=== PATIENT | male | born 1960 | race Caucasian/White ===

== ENCOUNTER → 2023-04-26 23:25 | Outpatient (CLI) | payer OTHER, SELFPAY ==
[2023-04-26 19:24] LABS: Basophils # 0.1 K/mm3 (0-0.2); Basophils % 1.1 % (0.1-2.0); Eosinophils # 0.2 K/mm3 (0.0-0.4); Eosinophils % 2.5 % (0.1-12.0); Hematocrit 46.5 % (42.0-52.0); Lymphocytes # 1.5 K/mm3 (0.7-4.5); Lymphocytes % 18.1 % (10-50); Mean Corpuscular HGB Conc 34.3 g/dL (31.8-35.4); Mean Corpuscular Hemoglobin 30.5 pg (27.0-31.2); Mean Corpuscular Volume 88.9 fl (80-94); Mean Platelet Volume 9.2 fl (7.4-10.4); Monocytes # 0.4 K/mm3 (0.1-1.0); Monocytes % 4.9 % (1.7-9.3); Neutrophils % 73.4 % (37.0-80.0); Platelet Count 324 K/mm3 (142-424); Red Blood Count 5.24 M/mm3 (4.60-6.20); Red Cell Distribution Width 13.6 % (11.5-17.5); White Blood Count 8.2 K/mm3 (4.8-10.8)
[2023-04-26 20:20] LABS: Alanine Aminotransferase 15 U/L (12-78); Albumin Level 4.8 g/dl (3.5-5.0); Albumin/Globulin Ratio 1.5 (1.1-1.8); Alkaline Phosphatase 116 U/L (38-126); Aspartate Amino Transferase 25 U/L (17-59); Bilirubin,Total 0.6 mg/dl (0.2-1.3); Blood Urea Nitrogen 15 mg/dl (9-20); Calcium 9.2 mg/dl (8.4-10.2); Carbon Dioxide 25 mmol/L (22.0-30.0); Chloride 101 mmol/L (98-107); Chol/HDL Ratio 6.9 (1-3.5); Cholesterol 213 mg/dl (140-200); Estimated Glomerular Filt Rate 86 ml/min (>60); GFR (African American) 103 ML/MIN (>60); Globulin 3.1 g/dL (1.3-3.2); Glucose 115 mg/dl (74-100); HDL Cholesterol 31 mg/dl (40-60); Sodium 136 mmol/L (136-145); Total Protein,Serum 7.9 g/dl (6.3-8.2); Triglycerides 283 mg/dl (30-150); VLDL Cholesterol 57 mg/dL (0-40)
[2023-04-26 20:32] LABS: Direct LDL Cholesterol 137.22 mg/dL (100-129)
[2023-04-26 20:37] LABS: 25-OH Vitamin D, Total 13.4 ng/mL (30-100)
[2023-04-26 20:52] LABS: Thyroid Stimulating Hormone 1.81 uIU/mL (0.465-4.68)
[2023-04-26 21:24] LABS: Amphetamine/Metha Screen,Urine Negative ng/ml (<1000)
[2023-04-26 21:25] LABS: Barbiturates Screen,Urine Negative ng/ml (<200)
[2023-04-26 21:26] LABS: Benzodiazepines Screen,Urine Negative ng/ml (<200); Cocaine Screen,Urine Negative ng/ml (<300)
[2023-04-26 21:27] LABS: Cannabinoid Screen,Urine Negative ng/ml (<50)
[2023-04-26 21:28] LABS: Methadone Screen,Urine Negative ng/ml (<300); Phencyclidine Screen,Urine Negative ng/ml (<25)
[2023-04-26 21:29] LABS: Opiate Screen,Urine Negative ng/ml (<300)
== END ==
PROVIDERS: Visit Provider Family Medicine
DX: Z79.899 Other long term (current) drug therapy (principal); E78.5 Hyperlipidemia, unspecified; I10 Essential (primary) hypertension; E55.9 Vitamin D deficiency, unspecified; Z68.28 Body mass index [BMI] 28.0-28.9, adult; Z87.891 Personal history of nicotine dependence
CPT/HCPCS: 80053; 80061; 80305; 82306; 84443; 85025; G0103

== ENCOUNTER 2023-05-09 11:15 | Outpatient (CLI) | payer OTHER, SELFPAY ==
--- NOTE | 2023-05-09 11:16 | US_ITS ---
FINAL REPORT CLINICAL HISTORY: bilateral leg pain , unhealing wound on left ANKLE, previous smoker, HTN, DM, HLD, hx [place], bilateral claudication. FINDINGS: COMPLETE ANKLE/BRACHIAL INDICES BILATERAL Ankle brachial indices were obtained. The right DAVE is 1.2. The left DAVE is 1.2. IMPRESSION: ABIs are within normal limits bilaterally. Reviewed, Interpreted and Dictated by Pranav Melton III, MD Transcribed by Chrissy Adhikari Authenticated and [facility]
== END 2023-05-09 23:59 ==
LOC: RT 11:16
PROVIDERS: Visit Provider Family Medicine
DX: M79.604 Pain in right leg (principal); M79.605 Pain in left leg; S91.002A Unspecified open wound, left ankle, initial encounter
CPT/HCPCS: 93923

== ENCOUNTER 2023-05-10 07:27 | Outpatient (CLI) | payer OTHER, SELFPAY ==
[2023-05-10 22:48] LABS: Amphetamine/Metha Screen,Urine Negative ng/ml (<1000)
[2023-05-10 22:49] LABS: Cannabinoid Screen,Urine Negative ng/ml (<50); Cocaine Screen,Urine Negative ng/ml (<300)
[2023-05-10 22:50] LABS: Opiate Screen,Urine Positive ng/ml (<300)
[2023-05-10 22:52] LABS: Phencyclidine Screen,Urine Negative ng/ml (<25)
[2023-05-10 23:15] LABS: Barbiturates Screen,Urine Negative ng/ml (<200); Benzodiazepines Screen,Urine Negative ng/ml (<200); Methadone Screen,Urine Negative ng/ml (<300)
== END 2023-05-10 23:59 ==
LOC: LAB.DROPOF 05-11 07:28
PROVIDERS: PCP Family Medicine; Visit Provider Family Medicine
DX: Z79.899 Other long term (current) drug therapy (principal)
CPT/HCPCS: 80307

== ENCOUNTER 2023-05-24 06:41 | Outpatient (CLI) | payer OTHER, SELFPAY ==
--- NOTE | 2023-05-24 | CA_ITS ---
APPROVED REPORT Exam: Pharmacologic Technologist: Jessica Johnson, Ht: 5 ft 11 in Wt: 208 lbs BSA: 2.14 m2 HR: 66 bpm BP: 145/73 mmHg Rhythm: NSR Medical History Medical History: HTN, Hyperlipidemia, Diabetes, Smoking Medications: Lisinopril,,,,, Aspirin,,,,, Metformin,,,,, Gabapentin,,,,, Atorvastatin,,,,, Vit D3,,,,, Bisprolol Fumarate,,,,, Omeprazole MAGNESUM,,,,, Allergies: MORPHINE, PENICILLIN Cardiac Risk Factors: HTN, Hyperlipidemia, Diabetes, FHX of CAD, Smoking Stress Test Details Test: LEXISCAN HR Resting HR: 69 bpm Max Heart Rate (APMHR): 158 bpm Max HR Achieved: 87 bpm Target HR (85% APMHR): 134 bpm % of APMHR: 55 Recovery HR: 79 bpm BP Resting BP: 145/73 mmHg Max BP: 156/81 mmHg Recovery BP: 148.0/77.0 mmHg ECG Resting ECG: Normal sinus rhythm, nonspecific T wave changes in inferior leads Stress ECG: No significant ST changes Arrhythmia: None Clinical Exercise duration: 04:01 min Highest Stage Achieved: Exercise capacity: 1.0 METs Stress ECG Conclusion PT HAD MILD SOA, AND HEAD DISCOMFORT NO SIGNIFICANT ST CHANGES Conclusion: UNREMARKABLE LEXISCAN STRESS MYOVIEW IMAGES REPORTED SEPARATELY Test Summary REST 04:15 . . 69 . 145/ 73 . . Stage 1 01:00 . . 79 . . . . Stage 2 01:00 . . 86 . . . . Stage 3 01:00 . . 84 . 156/ 81 . . Stage 4 01:00 . . 79 . 148/ 76 . . Stage 4 01:01 . . 79 . 148/ 76 . Stop exercise at 04:01 RECOVERY 01:00 . . 80 . . . . RECOVERY 02:00 . . 78 . . . . RECOVERY 03:00 . . 80 . 148/ 77 . . RECOVERY 03:51 . . 77 . 148/ 77 . . Electronically signed by : Martine Smith MD 05/25/2023 03:08:34
--- NOTE | 2023-05-24 06:42 | CA_ITS ---
APPROVED REPORT EXAM: Comprehensive 2D, Doppler, and color-flow Echocardiogram Employment Consultant: Mildred Rosales CRT Ht: 5 ft 11 in Wt: 208lbs BSA: 2.14 BP: 166/96 mmHg Indications: Chest Pain, Shortness of Breath, Diabetes, Fatigue, Hyperlipidemia, Hypertension/HDD 2D Dimensions Left Atrium 4.35 cm LVEF (Buchanan's) 54.20 % LVOT 2.08 cm (M/F) 1.5-2.5 LV Volume 135.40 mL LA Volume 66.60 mL LA Volume Index 31.10 mL/m2 (M/F) 16-34 EF AP4 53.70 % EF AP2 52.3 % EF BP 54.2 % GL Strain -18.8 % M-Mode Dimensions RVDd 3.40 cm (0.9-2.6) LVDd 4.83 cm (3.5-5.7) Ao Diam 4.41 cm (2.0-3.7) LVDs 3.29 cm (3.5-5.7) IVSd 1.00 cm (0.6-1.1) PWd 1.40 cm (0.6-1.1) EF (Teich) 59.90% FS 31.90% EDV (Teich) 109.10 mL TAPSE 2.22 (<1.7) ESV (Teich) 43.80 mL LV Diastology E Decel Time 181 (160-240 msec) E/A Ratio 0.90 MED E' 5.7 (>= 7 cm/sec) MED A' 9.20 cm/s E'/MED E' Ratio 14.23 (<= 14) LAT E' 7.5 (>= 10 cm/sec) LAT A' 14.40 cm/s E/LAT E' Ratio 10.81 (<= 14) Aortic Valve AoV Peak William. 127.0 (50-130 cm/s) AO Peak GR. 6.50 mmHg Mitral Valve MV E Max William. 81.0 (40-130 cm/s) MV A Velocity 91.0 (40-130 cm/s) E/A Ratio 0.90 MV Decel. Time 181 (160-240 ms) Tricuspid Valve TR P. Velocity 319.00 cm/s RAP Estimate 10.00 mmHg RVSP 50.60 mmHg Left Ventricle The left ventricle is normal size. The left ventricular systolic function is normal. The left ventricular ejection fraction is within the normal range. There is normal left ventricular wall thickness. There is normal LV segmental wall motion. The left ventricular diastolic function is normal. LVEF is 55%. Right Ventricle The right ventricle is normal size. The right ventricular systolic function is normal. Atria Left atrium is mildly dilated. The right atrium size is normal. There is no Doppler evidence of interatrial shunt. Aortic Valve The aortic valve is mildly thikened. The aortic valve is trileaflet. There is no aortic valvular stenosis. No aortic regurgitation is present. Mitral Valve The mitral valve leaflets are mildly thickened. No evidence of mitral valve stenosis. Mild mitral regurgitation. Tricuspid Valve The tricuspid valve leaflets are thin and pliable. Mild tricuspid regurgitation. RVSP is 30-35 mmHg. Pulmonic Valve The pulmonary valve is normal in structure. Trace pulmonic regurgitation. Great Vessels The aortic root is normal in size. The ascending aorta is not well visualized. IVC is normal in size and collapses >50% with inspiration. Pericardium There is no pericardial effusion. Other Information Study Quality: Fair Conclusion Normal biventricular systolic function. Mild LA dilation. Mild MR. Mild TR. RVSP 30-35 mmHg. Electronically signed by : Martine Smith MD 05/27/2023 10:27:46
--- NOTE | 2023-05-24 06:45 | NM_ITS ---
APPROVED REPORT Exam: Nuclear Stress Test Indication: Chest pain, SOB, HTN, DM, High cholesterol Patient Location: Outpatient Stress Tech: Jessica Johnson PA Tech:Bernie Paredes, ARRT, RT (R)(N) Ht: 5 ft 11 in Wt: 200 lbs HR: 69 bpm BP: 145/73 mmHg BSA: 2.11 m2 Rhythm: NSR TID: 1.08 BMI: 27.8 History: Chest pain, SOB, HTN, DM, High cholesterol Procedure: Patient received 0.4 mg of intravenous AdenosineLexiscan, resting heart rate 69 bpm, resting blood pressure 145/73 mmHg, with Lexiscan maximum heart rate achieved was 87 bpm which is % of the maximum predicted heart rate and blood pressure was 156/81 mmHg. With Lexiscan, patient denied any complaint of chest pain. Cardiac Stress and Resting SPECT Images: Cardiac Stress and Resting SPECT images were obtained using technetium 99m Myoview 31.6 mCi stress and 10.82 mCi at rest. Resting and stress imaging in supine and prone positions demonstrate a medium sized, moderate predominantly fixed perfusion defect in the basal to mid inferior LV wall. There is a region of reversibility towards the mid segment. Gated imaging demonstrates low normal LV systolic function. There is mild hypokinesis of the basal inferior LV wall. LVEF is calculated at 53%. Conclusion: Medium sized, moderate predominantly fixed perfusion defect in the basal to mid inferior LV wall. There is a region of reversibility towards the mid segment. Gated imaging demonstrates low normal LV systolic function. There is mild hypokinesis of the basal inferior LV wall. LVEF is calculated at 53%. Electronically signed by : Martine Smith MD 05/25/2023 03:10:28
[2023-05-24] MEDS: REGADENOSON 0.4MG/5ML SYRINGE 0.400000000000000022 MG IV (08:37)
[2023-05-24] MEDS: ISOTOPE MYOVIEW (PER STUDY) 1 DOSE IV (08:37)
[2023-05-24] MEDS: SODIUM CHLORIDE 0.9% 10ML SYR (RAD ONLY) 10 ML IV ×2 (08:37)
[2023-05-24 21:27] LABS: Amphetamine/Metha Screen,Urine Negative ng/ml (<1000); Barbiturates Screen,Urine Negative ng/ml (<200)
[2023-05-24 21:28] LABS: Benzodiazepines Screen,Urine Negative ng/ml (<200)
[2023-05-24 21:29] LABS: Cannabinoid Screen,Urine Negative ng/ml (<50); Cocaine Screen,Urine Negative ng/ml (<300)
[2023-05-24 21:30] LABS: Methadone Screen,Urine Negative ng/ml (<300); Opiate Screen,Urine Negative ng/ml (<300)
[2023-05-24 21:31] LABS: Phencyclidine Screen,Urine Negative ng/ml (<25)
== END 2023-05-24 23:59 ==
PROVIDERS: PCP Family Medicine; Visit Provider Family Medicine
DX: I20.89 Other forms of angina pectoris (principal); R06.09 Other forms of dyspnea; I10 Essential (primary) hypertension; E11.9 Type 2 diabetes mellitus without complications; G62.9 Polyneuropathy, unspecified; Z79.899 Other long term (current) drug therapy
CPT/HCPCS: 78452; 80307; 93017; 93018; 93306; A9502; J2785

== ENCOUNTER 2023-06-13 07:40 | Day surgery (SDC) | payer OTHER, SELFPAY ==
[2023-06-13] VITALS (16 sets, daily range): BP systolic 149–177; BP diastolic 86–100; PULSE 74–99; RESP 15–18; TEMP 36.8–36.9; O2SAT 94–99; BMI 29.4
--- NOTE | 2023-06-13 07:05 | IR_ITS ---
APPROVED REPORT Patient Location: Outpatient Culinary Assistant: COREY Haro RT (R) PROCEDURES Left heart catheterization Left ventriculogram Selective coronary angiogram FFR angiogram of the right coronary artery FFR angiogram of the LAD Drug-eluting stent deployment to the mid and distal dominant right coronary INDICATION Coronary artery disease, Abnormal Myoview inferior defect, FFR index 0.69 in the right coronary, Informed consent was obtained prior to the procedure. COMPLICATIONS NONE Estimated Blood Loss: LESS THAN 10 ML TECHNIQUE One percent lidocaine used to anesthetize the right anterior aspect of the wrist. The right radial artery was accessed via the Seldinger technique. A 6 Yoruba sheath was placed in the right radial artery. 2.5 mg of Verapamil, 800 mcg of nitroglycerin, 1mg Lidocaine and 5000 U Heparin were given through the arterial sheath. The papa catheter was also used to perform left heart catheterization, left ventriculogram and selective coronary angiogram. At the end the diagnostic angiogram cath works FFR angiography was performed which indicated the right coronary artery had an FFR index of 0.69. Because of this therapeutic heparin was administered giving a therapeutic ACT and the guide catheter was placed in the right coronary followed by Choice PT extra-support wire distally. A 3.5 x 38 mm [place] frontier stent was deployed at 24 yadira reducing the hemodynamically severe stenosis to 0%. JOSH-3 flow was present before and after the procedure. At the end the procedure the apparatus was removed the sheath was removed and hemostasis was achieved using TR banding patient was transferred to the postop holding area in stable condition. An FFR angiogram was performed on the LAD. The proximal lesion produced an FFR index of 0.86 while the mid to distal lesion produced an FFR index of 0.82. ANGIOGRAPHIC RESULTS The left main artery Normal The left anterior descending artery Is proximally normal and had mid vessel 30 to 40% stenoses. First diagonal artery has a proximal 80% stenosis. The circumflex artery Is nondominant and gives rise to a narrow caliber small ramus intermedius which has a proximal 70 to 80% stenosis. The true circumflex artery gives rise to a bifurcating first obtuse marginal artery which has diffuse 30% stenoses. The circumflex artery in the AV groove has diffuse 40% stenoses The right coronary artery Is a large dominant vessel and has proximal 30% stenosis mid vessel 30% stenosis with distal 50 to 70% stenoses. The posterior descending artery and posterolateral branch are large distal branches The GEIGER ventriculogram reveals Hyperdynamic at 70 to 75% The left ventricular end-diastolic pressure 25 mmHg IMPRESSION Severe disease in the distal dominant right coronary producing an FFR index of 0.69 Successful stenting of the distal dominant right coronary severe disease reduced to 0% with 1 drug-eluting stent Persistent severe stenosis in a narrow caliber medium sized first diagonal artery which is best managed medically Persistent severe stenosis in a narrow caliber small ramus intermedius best managed medically Diffuse disease throughout the mid LAD which is best managed medically Hyperdynamic ventricle Elevated LVEDP consistent with hypertensive heart disease LAD FFR index proximally 0.86 distally 0.82 with both lesions benefiting from medical management PLAN 1. Dual antiplatelet therapy 2. Cardiac rehabilitation 3. Medical management for the remaining coronary artery disease 4. Better control of hypertension 5. LDL less than 55 to be achieved with high intensity statin 6. Avoidance of tobacco products Electronically signed by : Jhonatan Montemayor MD 06/13/2023 11:25:29
[2023-06-13 08:15] LABS: Basophils # 0.1 K/mm3 (0-0.2); Basophils % 1.3 % (0.1-2.0); Eosinophils # 0.4 K/mm3 (0.0-0.4); Eosinophils % 4.2 % (0.1-12.0); Hematocrit 43.7 % (42.0-52.0); Hemoglobin 14.7 g/dL (14.1-18.0); Lymphocytes # 2.5 K/mm3 (0.7-4.5); Lymphocytes % 28.8 % (10-50); Mean Corpuscular HGB Conc 33.6 g/dL (31.8-35.4); Mean Corpuscular Hemoglobin 30.2 pg (27.0-31.2); Mean Corpuscular Volume 89.8 fl (80-94); Mean Platelet Volume 8.4 fl (7.4-10.4); Monocytes # 0.6 K/mm3 (0.1-1.0); Monocytes % 6.2 % (1.7-9.3); Neutrophils # 5.3 K/mm3 (1.8-7.8); Neutrophils % 59.6 % (37.0-80.0); Platelet Count 237 K/mm3 (142-424); Red Blood Count 4.87 M/mm3 (4.60-6.20); Red Cell Distribution Width 13.6 % (11.5-17.5); White Blood Count 8.8 K/mm3 (4.8-10.8)
[2023-06-13 08:18] LABS: Chloride 101 mmol/L (98-107); Sodium 139 mmol/L (136-145)
[2023-06-13 08:22] LABS: Blood Urea Nitrogen 16 mg/dl (9-20); Calcium 9.3 mg/dl (8.4-10.2); Carbon Dioxide 32 mmol/L (22.0-30.0); Creatinine Clearance Estimated 104 mL/min (50-200); Estimated Glomerular Filt Rate 98 ml/min (>60); GFR (African American) 119 ML/MIN (>60); Glucose 158 mg/dl (74-100)
[2023-06-13] MEDS: HEPARIN 1,000 UNITS/500ML NS (CATH LAB) 3000 UNIT IV (09:54)
[2023-06-13] MEDS: HEPARIN 1,000 UNITS/ML 10ML VIAL (CATH LAB) 10000 UNIT IV ×3 (09:55→10:52)
[2023-06-13] MEDS: VERAPAMIL 2.5MG/ML 2ML VIAL 2.5 MG IV (09:55)
[2023-06-13] MEDS: diphenhydrAMINE 50MG/ML VIAL 50 MG IV (09:55)
[2023-06-13] MEDS: 0.9 % SODIUM CHLORIDE 500 ML 25 ML IV (09:55)
[2023-06-13] MEDS: LIDOCAINE 1% 10ML MDV 20 ML IJ (09:55)
[2023-06-13] MEDS: NITROGLYCERIN 800MCG/8ML SYR (CATH LAB) 800 MCG IA (09:56)
[2023-06-13] MEDS: FENTANYL 100MCG/2ML VIAL 25 MCG IV (10:27)
[2023-06-13] MEDS: MIDAZOLAM HCL 1MG/1ML 5ML VIAL 1 MG IV (10:27)
[2023-06-13] MEDS: PRASUGREL 10MG TAB 60 MG PO (10:50)
[2023-06-13] MEDS: IOPAMIDOL-370 (76%);100ML BOTTLE 80 ML IV (14:17)
[2023-06-13 14:19] LABS: CATHL Activated Clotting Time 255 SEC (74-125)
== END 2023-06-13 14:51 | disposition home or self-care (01) ==
PROVIDERS: PCP Family Medicine; Visit Provider Internal Medicine
DX: I25.118 Atherosclerotic heart disease of native coronary artery with other forms of angina pectoris (principal); R94.39 Abnormal result of other cardiovascular function study; I11.9 Hypertensive heart disease without heart failure; E11.9 Type 2 diabetes mellitus without complications; Z79.84 Long term (current) use of oral hypoglycemic drugs; Z79.899 Other long term (current) drug therapy; R06.02 Shortness of breath; E55.9 Vitamin D deficiency, unspecified; I25.2 Old myocardial infarction; Z87.891 Personal history of nicotine dependence
CPT/HCPCS: 80048; 85025; 85347; 92928; 93458; 93571; 93572; 99152; 99153; C1725; C1769; C1876; C9600; J1644; Q9967

== ENCOUNTER 2023-06-19 09:10 | Outpatient (CLI) | payer OTHER, SELFPAY ==
[2023-06-19 09:53] LABS: Basophils # 0.1 K/mm3 (0-0.2); Basophils % 1.1 % (0.1-2.0); Eosinophils # 0.3 K/mm3 (0.0-0.4); Eosinophils % 3.6 % (0.1-12.0); Hemoglobin 15.8 g/dL (14.1-18.0); Lymphocytes # 2.8 K/mm3 (0.7-4.5); Lymphocytes % 34.8 % (10-50); Mean Corpuscular Hemoglobin 30.3 pg (27.0-31.2); Mean Corpuscular Volume 86.5 fl (80-94); Mean Platelet Volume 8.1 fl (7.4-10.4); Monocytes # 0.5 K/mm3 (0.1-1.0); Monocytes % 5.8 % (1.7-9.3); Neutrophils # 4.4 K/mm3 (1.8-7.8); Neutrophils % 54.8 % (37.0-80.0); Platelet Count 266 K/mm3 (142-424); Red Cell Distribution Width 13.4 % (11.5-17.5)
[2023-06-19 10:49] LABS: Chloride 98 mmol/L (98-107); Sodium 137 mmol/L (136-145)
[2023-06-19 10:50] LABS: Potassium 5.2 mmoL/L (3.5-5.1)
[2023-06-19 10:52] LABS: Blood Urea Nitrogen 15 mg/dl (9-20); Estimated Glomerular Filt Rate 98 ml/min (>60); GFR (African American) 119 ML/MIN (>60)
[2023-06-19 10:53] LABS: Anion Gap 12.2 mEq/L (5-15); Calcium 9.8 mg/dl (8.4-10.2); Carbon Dioxide 32 mmol/L (22.0-30.0); Glucose 176 mg/dl (74-100)
== END 2023-06-19 23:59 ==
LOC: LAB 09:11
PROVIDERS: PCP Internal Medicine; Visit Provider Internal Medicine
DX: I25.10 Atherosclerotic heart disease of native coronary artery without angina pectoris (principal); Z95.5 Presence of coronary angioplasty implant and graft
CPT/HCPCS: 36415; 80048; 85025

== ENCOUNTER 2023-07-03 10:04 | Outpatient (CLI) | payer OTHER, SELFPAY ==
--- NOTE | 2023-07-03 10:12 | XR_ITS ---
FINAL REPORT CLINICAL HISTORY: cough for months FINDINGS: 2 views of the chest were obtained . The heart is normal in size. The mediastinum is within normal limits. The lungs are clear. There is no pneumothorax. Osseous structures are unremarkable. IMPRESSION: No acute cardiopulmonary process. Reviewed, Interpreted and Dictated by Shea Rashid MD Transcribed by Salima Yanes Authenticated and . [facility]
== END 2023-07-03 23:59 ==
LOC: RAD 10:04
PROVIDERS: PCP Internal Medicine; Visit Provider Physician Assistant
DX: R06.00 Dyspnea, unspecified (principal); R05.9 Cough, unspecified
CPT/HCPCS: 71046

== ENCOUNTER 2023-07-04 08:21 | Day surgery (SDC) | payer OTHER, SELFPAY ==
[2023-07-04] MEDS: TETRACAINE 0.5% OPTH SOL 15ML OP ×3 (09:26→09:27)
[2023-07-04] MEDS: PHENYLEPHRINE 2.5% OPHTH SOLN 2ML 0.0500000000000000028 ML OP ×3 (09:27→09:28)
[2023-07-04] MEDS: CYCLOPENTOLATE 2% OPHTH SOLN 2ML BOTTLE OP ×3 (09:27→09:28)
[2023-07-04] MEDS: LACTATED RINGERS 1000ML 1,000 ML 25 ML IV (09:28)
[2023-07-04 09:33] VITALS: BP 140/82; PULSE 75; RESP 18; TEMP 36.2; O2SAT 93; BMI 29.2
[2023-07-04 09:45] LABS: POC Glucose,Bedside 194 (70-110)
[2023-07-04 11:30] VITALS: BP 179/78; PULSE 74; RESP 18; O2SAT 98
[2023-07-04 11:35] VITALS: BP 156/58; PULSE 72; RESP 18; O2SAT 100
[2023-07-04 11:40] VITALS: BP 153/72; PULSE 71; RESP 18; O2SAT 100
[2023-07-04] MEDS: MIDAZOLAM 2MG/2ML VIAL 1 MG IV (11:42)
[2023-07-04] MEDS: LIDOCAINE 1% PF 2ML AMPULE 2 ML IJ (11:42)
[2023-07-04] MEDS: TOBRAMYCIN/DEX OPTH SUSP 2.5ML OP (11:42)
[2023-07-04] MEDS: TIMOLOL 0.5% OPTH SOLN 5ML OP (11:43)
[2023-07-04 11:45] VITALS: BP 136/82; PULSE 68; RESP 16; TEMP 36.6; O2SAT 98
== END 2023-07-04 11:53 | disposition home or self-care (01) ==
PROVIDERS: PCP Internal Medicine; Visit Provider Ophthalmology
PROC: (CPT 66984; principal; 2023-07-04 11:00)
DX: E11.36 Type 2 diabetes mellitus with diabetic cataract (principal); H25.091 Other age-related incipient cataract, right eye
CPT/HCPCS: 66984; 82962; V2632

== ENCOUNTER 2023-09-01 07:38 | Outpatient (CLI) | payer OTHER, SELFPAY ==
--- NOTE | 2023-09-01 07:38 | CA_ITS ---
FINAL REPORT TECHNIQUE: Grayscale, color Doppler and duplex Doppler ultrasound of the kidneys, aorta and renal arteries was performed. Multiple velocities were measured. CLINICAL HISTORY: htn COMPARISON: None FINDINGS: Aorta velocity: 88 cm/sec Right kidney: 12.1 cm. No evidence of hydronephrosis or mass. Right intrarenal RI: 0.62-0.72 Right renal artery velocity: 171 cm/sec. Right RAR (Renal artery-Aortic Ratio): 1.95 Left Kidney: 11.8 cm. No evidence of hydronephrosis or mass. Left intrarenal RI: 0.62-0.65 Left renal artery velocity: 147 cm/sec. Left RAR (Renal Artery-Aortic Ratio): 1.68 IMPRESSION: Less than 50% bilateral renal artery stenosis. CT angiogram or postcontrast MR angiogram would be more sensitive for evaluation of possible renal artery stenosis. Reviewed, Interpreted and Dictated by Jeramie Mckeon MD Transcribed by Loraine Olsen Authenticated and [facility]
--- NOTE | 2023-09-01 08:01 | US_ITS ---
FINAL REPORT CLINICAL HISTORY: .htn COMPARISON: None FINDINGS: RENAL ULTRASOUND Ultrasound images of the kidneys were obtained. Limited images of the liver demonstrate fatty infiltration. The right kidney measures 12.3 cm in length. It is normal echogenicity. There is no hydronephrosis. The left kidney measures 12.9 cm in length. It is normal echogenicity. There is no hydronephrosis. IMPRESSION: Normal renal ultrasound. Fatty liver. Reviewed, Interpreted and Dictated by Jeramie Mckeon MD Transcribed by Loraine Olsen Authenticated and . [facility]
== END 2023-09-01 23:59 | disposition home or self-care (01) ==
LOC: RT 07:38
PROVIDERS: PCP Family Medicine; Visit Provider Family Medicine
DX: I10 Essential (primary) hypertension (principal); Z87.891 Personal history of nicotine dependence
CPT/HCPCS: 76770; 93976

== ENCOUNTER 2023-09-06 13:02 | Outpatient (CLI) | payer OTHER, SELFPAY ==
--- NOTE | 2023-09-06 13:03 | CT_ITS ---
FINAL REPORT TECHNIQUE: Axial images were obtained from the lung apex to the mid abdomen by computed tomography. Coronal reformatted images were obtained. This study was performed with techniques to keep radiation doses as low as reasonably achievable, (ALARA). Individualized dose reduction techniques using automated exposure control or adjustment of mA and/or kV according to the patient''s size were employed. CLINICAL HISTORY: Shortness of breath COMPARISON: None FINDINGS: There is no axillary adenopathy. There is no hilar or mediastinal adenopathy. Heart size is normal. 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 There is no pericardial or pleural effusion. No suspicious infiltrate or nodule is identified. Limited images of the upper abdomen demonstrate cholelithiasis. 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 Cholelithiasis. Reviewed, Interpreted and Dictated by Harsh Tadeo MD Transcribed by Loraine Olsen Authenticated and [facility] [place]
== END 2023-09-06 23:59 | disposition home or self-care (01) ==
LOC: RAD 13:03
PROVIDERS: PCP Family Medicine; Visit Provider Physician Assistant
DX: R06.00 Dyspnea, unspecified (principal); R05.9 Cough, unspecified; F17.200 Nicotine dependence, unspecified, uncomplicated; N52.9 Male erectile dysfunction, unspecified
CPT/HCPCS: 71250

== ENCOUNTER 2023-09-15 14:26 | Outpatient (CLI) | payer OTHER, SELFPAY ==
--- NOTE | 2023-09-15 14:27 | XR_ITS ---
FINAL REPORT CLINICAL HISTORY: Foot Pain COMPARISON: None FINDINGS: LEFT FOOT: Three views of the left foot were obtained. There is no acute fracture or dislocation. A small plantar calcaneal spur. There is mild degenerative change of the first MTP joint. Mild vascular calcifications are present. IMPRESSION: No acute bony abnormality. Mild first MTP degenerative change and a small plantar calcaneal spur. Reviewed, Interpreted and Dictated by Pranav Melton III, MD Transcribed by Hue Jones Authenticated and [facility]
--- NOTE | 2023-09-15 14:27 | XR_ITS ---
FINAL REPORT CLINICAL HISTORY: Foot Pain COMPARISON: None FINDINGS: RIGHT FOOT: Three views of the right foot were obtained. There is no acute fracture or dislocation. Mild degenerative changes present. There is a small plantar calcaneal spur. Vascular calcifications are present. IMPRESSION: No acute bony abnormality. Mild degenerative change and a small plantar calcaneal spur. Reviewed, Interpreted and Dictated by Pranav Melton III, MD Transcribed by Hue Jones Authenticated and [facility]
--- NOTE | 2023-09-15 14:27 | CT_ITS ---
FINAL REPORT TECHNIQUE: Thin section axial images were obtained from the lung apices to the upper abdomen by computed tomography. Reformatted images were obtained and reviewed. This study was performed with techniques to keep radiation doses al low as reasonably achievable (ALARA). Individualized dose reduction techniques using automated exposure control or adjustment of mA and/or kV according to the patient's size were employed. CLINICAL HISTORY: lung cancer screening former smoker, quit 44 years ago, smoked 1 ppd for 2 years grandmother hx of lung cancer COMPARISON: Prior chest CT dated 09/06/2023. FINDINGS: CHEST CT LOW DOSE 63-year-old male, quit smoking 44 years ago, 2 pack history of smoking. CTDI vol (mGy): 2.9 DLP (mGy-cm): 96.38 There is no axillary adenopathy. There is no mediastinal or hilar mass or adenopathy. The heart is normal in size. Severe coronary artery calcifications are present. There is no pericardial or pleural effusion. A calcified granuloma is present in the lingula. Lung window images demonstrate no suspicious infiltrate or nodule. Limited images of the upper abdomen reveal cholelithiasis.. IMPRESSION: Lung-RADS category 1 S, the S designation for severe coronary artery calcifications. Recommend 12 month follow up low dose chest CT. Reviewed, Interpreted and Dictated by Pranav Melton III, MD Transcribed by Hue Jones Authenticated and [facility]
== END 2023-09-15 23:59 | disposition home or self-care (01) ==
LOC: RAD 14:27
PROVIDERS: PCP Family Medicine; Visit Provider Family Medicine
DX: M79.671 Pain in right foot (principal); M79.672 Pain in left foot; Z87.891 Personal history of nicotine dependence
CPT/HCPCS: 71271; 73630

== ENCOUNTER → 2023-10-23 20:08 | Outpatient (CLI) | payer OTHER, SELFPAY | LOC: SL 20:11 | PROVIDERS: PCP Family Medicine; Visit Provider Family Medicine | DX: G47.33 Obstructive sleep apnea (adult) (pediatric) (principal); G47.36 Sleep related hypoventilation in conditions classified elsewhere | CPT/HCPCS: 95810 ==

== ENCOUNTER 2023-11-07 13:03 | Outpatient (CLI) | payer OTHER, SELFPAY ==
[2023-11-07 14:45] LABS: Vitamin B12 204 pg/mL (239-931)
[2023-11-08 10:18] LABS: Thyroid Stimulating Hormone 2.03 uIU/mL (0.465-4.68)
== END 2023-11-07 23:59 | disposition home or self-care (01) ==
PROVIDERS: PCP Family Medicine; Visit Provider Specialist
DX: G62.9 Polyneuropathy, unspecified (principal); Z68.32 Body mass index [BMI] 32.0-32.9, adult; E66.9 Obesity, unspecified
CPT/HCPCS: 36415; 82607; 82746; 84443

== ENCOUNTER 2023-11-21 12:25 | Outpatient (CLI) | payer OTHER, SELFPAY ==
--- NOTE | 2023-11-21 12:26 | MR_ITS ---
FINAL REPORT TECHNIQUE: Multiplanar and multisequence imaging of the brain was obtained before and after contrast injection. CLINICAL HISTORY: Right facial weakness, rule out subcortical CVA FINDINGS: There is no mass effect or midline shift. There are periventricular and subcortical foci of T2 abnormality. No hydrocephalus. The cerebellum and brainstem have a normal appearance. There are no areas of restricted diffusion on diffusion weighted images to suggest acute infarct. Soft tissues are without acute abnormality. Post contrast images reveal no pathologic contrast enhancement. IMPRESSION: No acute intracranial abnormality and no pathologic contrast enhancement. Periventricular and subcortical T2 abnormality, likely related to changes of chronic small vessel ischemia. Reviewed, Interpreted and Dictated by Shea Rashid MD Transcribed by Chrissy Adhikari Authenticated and [facility]
[2023-11-21 13:04] LABS: Blood Urea Nitrogen 10 mg/dl (9-20); Estimated Glomerular Filt Rate 98 ml/min (>60); GFR (African American) 119 ML/MIN (>60)
[2023-11-21] MEDS: SODIUM CHLORIDE 0.9% 10ML SYR (RAD ONLY) 10 ML IV (14:10)
[2023-11-21] MEDS: GADOTERIDOL INJ 20ML SYRINGE 20 ML IV (14:10)
[2023-11-21 14:50] VITALS: PULSE 85; PULSE 89
[2023-11-21] MEDS: ALBUTEROL 0.083% 2.5 MG/3 ML NEB IH (14:50)
== END 2023-11-21 23:59 | disposition home or self-care (01) ==
PROVIDERS: PCP Family Medicine; Visit Provider Specialist
DX: G62.9 Polyneuropathy, unspecified (principal); G47.33 Obstructive sleep apnea (adult) (pediatric); G47.34 Idiopathic sleep related nonobstructive alveolar hypoventilation
CPT/HCPCS: 36415; 70553; 82565; 84520; 94060; 94640; 94726; 94729; A9576; J7613

== ENCOUNTER 2024-01-17 14:04 | Outpatient (CLI) | payer OTHER, SELFPAY ==
[2024-01-17 14:59] LABS: Hemoglobin A1C 5.9 % (4.0-6.0)
[2024-01-17 15:59] LABS: Vitamin B12 361 pg/mL (239-931)
== END 2024-01-17 23:59 | disposition home or self-care (01) ==
LOC: LAB 14:05
PROVIDERS: PCP Family Medicine; Visit Provider Family Medicine
DX: Z00.00 Encounter for general adult medical examination without abnormal findings (principal); E53.8 Deficiency of other specified B group vitamins
CPT/HCPCS: 36415; 82607; 83036

== ENCOUNTER 2024-01-24 11:52 | Outpatient (CLI) | payer OTHER, SELFPAY ==
[2024-01-24 12:35] LABS: Basophils # 0.1 K/mm3 (0-0.2); Basophils % 1.1 % (0.1-2.0); Eosinophils # 0.3 K/mm3 (0.0-0.4); Hematocrit 42.3 % (42.0-52.0); Hemoglobin 13.9 g/dL (14.1-18.0); Lymphocytes % 29.7 % (10-50); Mean Corpuscular HGB Conc 32.8 g/dL (31.8-35.4); Mean Corpuscular Hemoglobin 30.5 pg (27.0-31.2); Mean Corpuscular Volume 92.8 fl (80-94); Mean Platelet Volume 7.3 fl (7.4-10.4); Monocytes # 0.6 K/mm3 (0.1-1.0); Monocytes % 6.3 % (1.7-9.3); Neutrophils # 6.1 K/mm3 (1.8-7.8); Neutrophils % 59.9 % (37.0-80.0); Platelet Count 344 K/mm3 (142-424); Red Blood Count 4.56 M/mm3 (4.60-6.20); Red Cell Distribution Width 13.4 % (11.5-17.5); White Blood Count 10.1 K/mm3 (4.8-10.8)
[2024-01-28 10:09] LABS: D001-IgE D pteronyssinus <0.10 kU/L (Class 0); D002-IgE D farinae <0.10 kU/L (Class 0); E001-IgE Cat Dander <0.10 kU/L (Class 0); E005-IgE Dog Dander <0.10 kU/L (Class 0); E072-IgE Mouse Urine <0.10 kU/L (Class 0); G002-IgE Bermuda Grass <0.10 kU/L (Class 0); G006-IgE Timothy Grass <0.10 kU/L (Class 0); I006-IgE Cockroach, German <0.10 kU/L (Class 0); Immunoglobulin E, Total 13 IU/mL (6-495); M001-IgE Penicillium chrysogen <0.10 kU/L (Class 0); M002-IgE Cladosporium herbarum <0.10 kU/L (Class 0); M003-IgE Aspergillus fumigatus <0.10 kU/L (Class 0); M006-IgE Alternaria alternata <0.10 kU/L (Class 0); T001-IgE Maple/Box Elder <0.10 kU/L (Class 0); T003-IgE Common Silver Birch <0.10 kU/L (Class 0); T006-IgE Cedar, Mountain <0.10 kU/L (Class 0); T007-IgE Oak, White <0.10 kU/L (Class 0); T008-IgE Elm, American <0.10 kU/L (Class 0); T010-IgE Walnut <0.10 kU/L (Class 0); T011-IgE Maple Leaf Sycamore <0.10 kU/L (Class 0); T014-IgE Cottonwood <0.10 kU/L (Class 0); T015-IgE Ash, White <0.10 kU/L (Class 0); T022-IgE Pecan, Hickory <0.10 kU/L (Class 0); T070-IgE White Mulberry <0.10 kU/L (Class 0); W001-IgE Ragweed, Short <0.10 kU/L (Class 0); W011-IgE Thistle, Russian <0.10 kU/L (Class 0); W014-IgE Pigweed, Common <0.10 kU/L (Class 0); W018-IgE Sheep Sorrel <0.10 kU/L (Class 0)
== END 2024-01-24 23:59 | disposition home or self-care (01) ==
LOC: LAB 11:52
PROVIDERS: PCP Family Medicine; Visit Provider Internal Medicine Pulmonary Disease
DX: J45.909 Unspecified asthma, uncomplicated (principal); J30.9 Allergic rhinitis, unspecified
CPT/HCPCS: 36415; 82785; 85025; 86003

== ENCOUNTER 2024-02-28 13:31 | Outpatient (CLI) | payer OTHER, SELFPAY ==
[2024-02-29 16:57] LABS: Antiparietal Cell Antibody 87.2 Units (0.0-20.0)
== END 2024-02-28 23:59 | disposition home or self-care (01) ==
LOC: LAB 13:32
PROVIDERS: PCP Family Medicine; Visit Provider Specialist
DX: E53.8 Deficiency of other specified B group vitamins (principal)
CPT/HCPCS: 36415; 83516; 86340

== ENCOUNTER 2024-08-16 10:49 | Outpatient (CLI) | payer OTHER, SELFPAY ==
[2024-08-16 18:04] LABS: Microalbumin/Creatinine Ratio 144.4
[2024-08-16 18:10] LABS: Creatinine,Urine Random 34 mg/dL (Not Estab.)
[2024-08-16 18:11] LABS: Basophils # 0.1 K/mm3 (0-0.2); Basophils % 0.8 % (0.1-2.0); Eosinophils # 0.3 K/mm3 (0.0-0.4); Eosinophils % 2.7 % (0.1-12.0); Hematocrit 42.5 % (42.0-52.0); Hemoglobin 14.2 g/dL (14.1-18.0); Lymphocytes # 2.2 K/mm3 (0.7-4.5); Lymphocytes % 24.2 % (10-50); Mean Corpuscular HGB Conc 33.4 g/dL (31.8-35.4); Mean Corpuscular Volume 86.7 fl (80-94); Mean Platelet Volume 10.6 fl (7.4-10.4); Monocytes # 0.6 K/mm3 (0.1-1.0); Monocytes % 6.3 % (1.7-9.3); Neutrophils # 6.1 K/mm3 (1.8-7.8); Neutrophils % 65.7 % (37.0-80.0); Nucleated Red Blood Cells # 0 10^3/uL; Nucleated Red Blood Cells % 0 %; Platelet Count 284 K/mm3 (142-424); Red Cell Distribution Width-SD 40.8 fL; White Blood Count 9.2 K/mm3 (4.8-10.8)
[2024-08-16 18:44] LABS: Hemoglobin A1C 5.8 % (4.0-6.0)
[2024-08-16 19:00] LABS: Alanine Aminotransferase 24 U/L (12-78); Albumin Level 4.9 g/dl (3.5-5.0); Albumin/Globulin Ratio 1.5 (1.1-1.8); Alkaline Phosphatase 87 U/L (38-126); Anion Gap 21.3 mEq/L (5-15); Aspartate Amino Transferase 27 U/L (17-59); Bilirubin,Total 0.9 mg/dl (0.2-1.3); Blood Urea Nitrogen 12 mg/dl (9-20); Calcium 9.8 mg/dl (8.4-10.2); Carbon Dioxide 25 mmol/L (22.0-30.0); Chloride 98 mmol/L (98-107); Chol/HDL Ratio 5.1 (1-3.5); Cholesterol 197 mg/dl (140-200); Estimated Glomerular Filt Rate 114 ml/min (>60); GFR (African American) 138 ML/MIN (>60); Globulin 3.3 g/dL (1.3-3.2); Glucose 136 mg/dl (74-100); HDL Cholesterol 39 mg/dl (40-60); Potassium 4.3 mmoL/L (3.5-5.1); Sodium 140 mmol/L (136-145); Total Protein,Serum 8.2 g/dl (6.3-8.2); Triglycerides 227 mg/dl (30-150); VLDL Cholesterol 45 mg/dL (0-40)
[2024-08-16 19:11] LABS: Direct LDL Cholesterol 110.79 mg/dL (100-129)
[2024-08-16 19:13] LABS: 25-OH Vitamin D, Total 89.8 ng/mL (30-100)
[2024-08-16 19:37] LABS: Prostate Specific Ag Screen 1.2 ng/ml (0.0-4.0); Thyroid Stimulating Hormone 2.28 uIU/mL (0.465-4.68)
== END 2024-08-16 23:59 | disposition home or self-care (01) ==
LOC: LAB.DROPOF 08-19 10:50
PROVIDERS: PCP Family Medicine; Visit Provider Family Medicine
DX: Z12.5 Encounter for screening for malignant neoplasm of prostate (principal); E11.42 Type 2 diabetes mellitus with diabetic polyneuropathy; I10 Essential (primary) hypertension; E78.5 Hyperlipidemia, unspecified; Z79.891 Long term (current) use of opiate analgesic
CPT/HCPCS: 80053; 80061; 82043; 82306; 82570; 83036; 84443; 85025; G0103

== ENCOUNTER 2024-09-06 12:32 | Outpatient (CLI) | payer OTHER, SELFPAY ==
--- NOTE | 2024-09-06 | CA_ITS ---
APPROVED REPORT EXAM: Comprehensive 2D, Doppler, and color-flow Echocardiogram Early Interventionist: Ellen Colvin RDCS Ht: 5 ft 11 in Wt: 229lbs BSA: 2.23 BP: 151/90 mmHg Indications: CP,HTN,DM,HLP M-Mode Dimensions RVDd 1.32 cm (0.9-2.6) LA Diam 4.12 cm (1.9-4.0) LVDd 5.97 cm (3.5-5.7) LVDs 3.71 cm (3.5-5.7) IVSd 0.85 cm (0.6-1.1) PWd 1.17 cm (0.6-1.1) EF (Teich) 67.10% FS 37.90% EDV (Teich) 177.90 mL ESV (Teich) 58.50 mL LV Diastology E Decel Time 173 (160-240 msec) E/A Ratio 1.2 Mitral Valve MV E Max William. 79.0 (40-130 cm/s) MV A Velocity 68.0 (40-130 cm/s) E/A Ratio 1.17 MV PHT 51.0 ms Left Ventricle The left ventricle is normal size. The left ventricular systolic function is normal. The left ventricular ejection fraction is within the normal range. There is increased LV wall thickness. There is normal LV segmental wall motion. The left ventricular diastolic function is normal. LVEF is 55%. Right Ventricle The right ventricle is normal size. The right ventricular systolic function is normal. Atria Left atrium is mildly dilated. Right atrium is mildly dilated. There is no Doppler evidence of interatrial shunt. Aortic Valve Aortic valve is mildly thickened. There is no aortic valvular stenosis. Trace aortic regurgitation. Mitral Valve The mitral valve is normal in structure. No evidence of mitral valve stenosis. Trace mitral regurgitation. Tricuspid Valve Tricuspid valve is grossly normal in structure and function. Trace tricuspid regurgitation. There is insufficient TR jet to estimate RVSP. Pulmonic Valve The pulmonary valve is normal in structure. Trace pulmonic regurgitation. Great Vessels The aortic root is normal in size. IVC is normal in size and collapses >50% with inspiration. Pericardium There is no pericardial effusion. Other Information Study Quality: Fair Conclusion Normal biventricular systolic function. Mild biatrial dilation. No significant valvular stenosis or regurgitation. Electronically signed by : Martine Smith MD 09/15/2024 20:50:37
== END 2024-09-06 23:59 | disposition home or self-care (01) ==
LOC: RT 12:33
PROVIDERS: PCP Family Medicine; Visit Provider Physician Assistant
DX: I51.89 Other ill-defined heart diseases (principal); I20.9 Angina pectoris, unspecified; R06.00 Dyspnea, unspecified
CPT/HCPCS: 93306

== ENCOUNTER 2024-12-12 09:37 | Outpatient (CLI) | payer OTHER, SELFPAY ==
--- NOTE | 2024-12-12 10:00 | CT_ITS ---
FINAL REPORT TECHNIQUE: Axial CT images of the chest were obtained without contrast. Low-dose protocol was utilized. This study was performed with techniques to keep radiation doses as low as reasonably achievable (ALARA). Individualized dose reduction techniques using automated exposure control or adjustment of mA and/or kV according to the patient's size were employed. CLINICAL HISTORY: lung cancer screening FORMER SMOKER QUIT 44 YEARS AGO, 2PPD X2 YEARS COMPARISON: 09/15/2023 FINDINGS: CT CHEST WITHOUT, LOW DOSE SCREENING CTDl vol(mGy): 2.90 DLP (mGy-cm): 98.73 Former smoker, quit 44 years ago 4 pack year history There is no axillary adenopathy. There is no hilar or mediastinal adenopathy. The heart size is normal. Again seen are extensive coronary artery calcifications. There is no pericardial or pleural effusion. Lung window images demonstrate a calcified granuloma in the left upper lobe. There is some sludge in the dependent portion of the gallbladder. IMPRESSION: Sludge in the gallbladder. Extensive coronary artery calcifications. Lung RADS category 1S. Modifier S: Coronary artery calcifications. Recommend 12 month follow-up low-dose chest CT per Fleischner criteria. Reviewed, Interpreted and Dictated by Jeramie Mckeon MD Transcribed by Daisy Boudreaux Authenticated and [facility]
== END 2024-12-12 23:59 | disposition home or self-care (01) ==
LOC: RAD 09:37
PROVIDERS: PCP Family Medicine; Visit Provider Family Medicine
DX: J98.4 Other disorders of lung (principal); J45.909 Unspecified asthma, uncomplicated; I25.10 Atherosclerotic heart disease of native coronary artery without angina pectoris; K82.8 Other specified diseases of gallbladder; Z87.891 Personal history of nicotine dependence
CPT/HCPCS: 71271

== ENCOUNTER 2025-01-15 09:40 | Outpatient (CLI) | payer OTHER, SELFPAY ==
--- NOTE | 2025-01-15 10:00 | US_ITS ---
FINAL REPORT TECHNIQUE: Sonographic images of the right upper quadrant were obtained. CLINICAL HISTORY: Gallbladder sludge seen on ct COMPARISON: None FINDINGS: PANCREAS: Unremarkable. LIVER: There is increased echogenicity in the liver consistent with fatty infiltration. No focal hepatic lesion. No intrahepatic biliary ductal dilatation. GALLBLADDER: Multiple gallstones are present in the gallbladder. The gallbladder is mildly distended, without gallbladder wall thickening identified. COMMON DUCT: 5 mm. Normal for age. RIGHT KIDNEY: The right kidney measures 11.2 cm. There is no hydronephrosis, mass, or stone. FREE FLUID: None. IMPRESSION: Multiple gallstones and a mildly distended gallbladder, without evidence of wall thickening or biliary ductal dilatation. Fatty infiltration of the liver. Reviewed, Interpreted and Dictated by Shea Rashid MD Transcribed by Hue Jones Authenticated and [facility]
== END 2025-01-15 23:59 | disposition home or self-care (01) ==
LOC: RAD 09:41
PROVIDERS: PCP Family Medicine; Visit Provider Family Medicine
DX: K80.20 Calculus of gallbladder without cholecystitis without obstruction (principal); K82.8 Other specified diseases of gallbladder; K76.0 Fatty (change of) liver, not elsewhere classified
CPT/HCPCS: 76705

== ENCOUNTER 2025-02-07 06:57 | Outpatient (CLI) | payer OTHER, SELFPAY ==
--- NOTE | 2025-02-07 07:00 | NM_ITS ---
FINAL REPORT TECHNIQUE: The patient was injected with 8.46 mCi of technetium choletec. Images of the abdomen were obtained for one hour. CLINICAL HISTORY: gallstones no cck per dr orders 7:15 am 8.46 [facility] tc choletec COMPARISON: None FINDINGS: Hepatic uptake is normal. There is gallbladder and small bowel activity at 30 minutes. CCK was not administered as the patient has gallstones. IMPRESSION: Normal hepatobiliary scan, with no evidence of cholecystitis. Reviewed, Interpreted and Dictated by Jeramie Mckeon MD Transcribed by Hue Jones Authenticated and [facility]
[2025-02-07] MEDS: SODIUM CHLORIDE 0.9% 10ML SYR (RAD ONLY) 10 ML IV (09:45)
[2025-02-07] MEDS: ISOTOPE CHOLETECH;1 DOSE (UP TO 15 MCI) IV (09:45)
== END 2025-02-07 23:59 | disposition home or self-care (01) ==
LOC: RAD 06:58
PROVIDERS: PCP Family Medicine; Visit Provider Family Medicine
DX: K80.20 Calculus of gallbladder without cholecystitis without obstruction (principal); K82.8 Other specified diseases of gallbladder
CPT/HCPCS: 78226; A9537

== ENCOUNTER 2025-03-07 08:22 | Outpatient (CLI) | payer OTHER, SELFPAY ==
[2025-03-07 09:16] LABS: Hematocrit 41.0 % (42.0-52.0); Hemoglobin 14.2 g/dL (14.1-18.0); Immature Granulocytes % 0.7 %; Mean Corpuscular HGB Conc 34.6 g/dL (31.8-35.4); Mean Corpuscular Hemoglobin 29.1 pg (27.0-31.2); Mean Corpuscular Volume 84.0 fl (80-94); Nucleated Red Blood Cells % 0 %; Platelet Count 345 K/mm3 (142-424); Red Blood Count 4.88 M/mm3 (4.60-6.20); Red Cell Distribution Width-SD 36.3 fL; White Blood Count 10.4 K/mm3 (4.8-10.8)
[2025-03-07 09:58] LABS: Albumin Level 5.2 g/dl (3.5-5.0); Chloride 94 mmol/L (98-107); Sodium 134 mmol/L (136-145)
[2025-03-07 09:59] LABS: Potassium 4.2 mmoL/L (3.5-5.1)
[2025-03-07 10:01] LABS: Alanine Aminotransferase 16 U/L (12-78); Albumin/Globulin Ratio 2.5 (1.1-1.8); Alkaline Phosphatase 99 U/L (38-126); Anion Gap 15.2 mEq/L (5-15); Aspartate Amino Transferase 18 U/L (17-59); Bilirubin,Total 0.5 mg/dl (0.2-1.3); Blood Urea Nitrogen 17 mg/dl (9-20); Carbon Dioxide 29 mmol/L (22.0-30.0); Creatinine,Serum 0.80 mg/dl (0.66-1.25); Estimated Glomerular Filt Rate 97 ml/min (>60); GFR (African American) 118 ML/MIN (>60); Globulin 2.1 g/dL (1.3-3.2); Total Protein,Serum 7.3 g/dl (6.3-8.2)
[2025-03-07 10:02] LABS: Calcium 9.3 mg/dl (8.4-10.2); Glucose 306 mg/dl (74-100)
[2025-03-07 11:33] LABS: Vitamin B12 230 pg/mL (239-931)
== END 2025-03-07 23:59 | disposition home or self-care (01) ==
LOC: LAB 08:23
PROVIDERS: Specialist; PCP Family Medicine; Visit Provider Surgery
DX: R10.11 Right upper quadrant pain (principal); E53.8 Deficiency of other specified B group vitamins
CPT/HCPCS: 36415; 80053; 80074; 82607; 85025